=== PATIENT | male | born 1945 | race Caucasian/White ===

== ENCOUNTER → 2016-08-07 | Outpatient (CLI) | payer MEDICARE | END | disposition home or self-care (01) | LOC: CARD 11:48 | PROVIDERS: ATTEND Genetic Counselor, MS | DX: Z02.9 Encounter for administrative examinations, unspecified (principal) ==

== ENCOUNTER → 2016-09-05 | Outpatient (CLI) | payer MEDICARE | END | disposition home or self-care (01) | LOC: CARD 10:37 | PROVIDERS: ATTEND Genetic Counselor, MS | DX: I25.10 Atherosclerotic heart disease of native coronary artery without angina pectoris (principal); I49.3 Ventricular premature depolarization | CPT/HCPCS: 93017 ==

== ENCOUNTER → 2016-09-06 | Outpatient (CLI) | payer MEDICARE ==
[~2016-09-06] MED LIST: OMNIPAQUE 350 MG/ML, 100ML BOTTLE ONE
== END | disposition home or self-care (01) ==
LOC: CFH 09:29
PROVIDERS: ATTEND Genetic Counselor, MS
DX: K44.9 Diaphragmatic hernia without obstruction or gangrene (principal); M48.56XA Collapsed vertebra, not elsewhere classified, lumbar region, initial encounter for fracture; M16.0 Bilateral primary osteoarthritis of hip; M47.896 Other spondylosis, lumbar region; M47.897 Other spondylosis, lumbosacral region
CPT/HCPCS: 71260; 74177; 82565; Q9967

== ENCOUNTER → 2019-03-30 | Outpatient (CLI) | payer MEDICARE ==
[~2019-03-30] MED LIST changes: +DIPH25CA61 PO; +ESOM20CA PO; +GLUC1TAB27 PO; +LISI-167 PO; +MAGN400T36 PO; +NAPR220C2 PO; -OMNIPAQUE 350 MG/ML, 100ML BOTTLE ONE; +TURMERIC PO; +TYLENOL PM PO; +[UNRECOGNIZED DRUG - OTHER] PO
[2019-03-30 10:22] LABS: BASOPHILS % (AUTO) 1 % (0-1); EOSINOPHILS # (AUTO) 0.08 x10^3/uL (0-0.4); EOSINOPHILS % (AUTO) 1 % (1-7); LYMPHOCYTES # (AUTO) 1.68 x10^3/uL (1-3.4); LYMPHOCYTES % (AUTO) 23 % (22-44); MD NO; MEAN CORPUSCULAR HEMOGLOBIN 30.4 pg (27.5-34.5); MEAN CORPUSCULAR HGB CONC 33.6 g/dL (33.2-36.2); MEAN CORPUSCULAR VOLUME 90.3 fL (81-97); MEAN PLATELET VOLUME 8.9 fL (7.4-10.4); MONOCYTES # (AUTO) 0.75 x10^3/uL (0.2-0.8); MONOCYTES % (AUTO) 10 % (2-9); NEUTROPHILS # (AUTO) 4.76 x10^3/uL (1.8-6.8); NEUTROPHILS % (AUTO) 65 % (42-75); PLATELET COUNT 254 x10^3/uL (130-400); RED BLOOD COUNT 5.05 x10^6/uL (4.38-5.82); RED CELL DISTRIBUTION WIDTH 13.3 % (9.4-14.8)
[2019-03-30 10:32] LABS: ALANINE AMINOTRANSFERASE 18 U/L (12-78); ALBUMIN 3.7 g/dL (3.4-5.0); ANION GAP 9 mmol/L (5-15); CHLORIDE 108 mmol/L (98-107)
[2019-03-30 10:34] LABS: ALKALINE PHOSPHATASE 54 U/L (45-117); BILIRUBIN,TOTAL 0.5 mg/dL (0.2-1.0); TOTAL PROTEIN 7.7 g/dL (6.4-8.2)
== END | disposition home or self-care (01) ==
LOC: STAR 09:21
PROVIDERS: ATTEND Orthopaedic Surgery
DX: Z01.818 Encounter for other preprocedural examination (principal); M16.12 Unilateral primary osteoarthritis, left hip
CPT/HCPCS: 36415; 80053; 85025; 87081; 93005

== ENCOUNTER 2019-04-14 05:14 | Inpatient (IN) | payer MEDICARE ==
[~2019-04-14] VITALS: Ht 180.3 cm; Wt 82.7 kg
[2019-04-14] MEDS ORDERED: LACTATED RINGERS 1,000 ML IV SCH (06:16)
[2019-04-14 06:19] VITALS: BP 156/81
[2019-04-14] MEDS ORDERED: ACETAMINOPHEN 100 ML IVPB ONE (06:30)
[2019-04-14] MEDS ORDERED: morphine SULFATE/PF 1 MG/ML, 10ML ONE (06:57)
[2019-04-14] MEDS ORDERED: METHYLENE BLUE 10 MG/ML 10ML ONE (06:57)
[2019-04-14] MEDS ORDERED: KETOROLAC 60 MG/2 ML ONE (06:57)
[2019-04-14] MEDS ORDERED: TRANEXAMIC ACID 100 MG/ML, 10ML ONE (06:57)
[2019-04-14] MEDS ORDERED: ROPIvacaine/PF 0.2%, 20 ML ONE (06:58)
[2019-04-14] MEDS ORDERED: NEOSPORIN OINT. PKT 1 PACKET ONE ×2 (06:58→07:08)
[2019-04-14] MEDS ORDERED: EPINEPHRINE 1 MG/ML, 1ML ONE (06:58)
[2019-04-14] MEDS ORDERED: VANCOMYCIN 1,000 MG ONE (06:58)
[2019-04-14] MEDS ORDERED: SODIUM CHLORIDE 0.9% 50 ML ONE (06:58)
[2019-04-14] MEDS ORDERED: ACETAMINOPHEN 500 MG TABLET PO ONE (07:00)
[2019-04-14] MEDS ORDERED: FENTANYL PF 250 MCG/5ML ONE (07:25)
[2019-04-14] MEDS ORDERED: LIDOCAINE PF 2%, 5ML ONE (07:26)
[2019-04-14] MEDS ORDERED: hydrALAzine 20 MG/ML, 1ML ONE ×2 (07:26→08:05)
[2019-04-14] MEDS ORDERED: PROPOFOL 10 MG/ML, 20ML ONE (07:59)
[2019-04-14] MEDS ORDERED: CEFAZOLIN 1,000 MG ONE (07:59)
[2019-04-14] MEDS ORDERED: DEXAMETHASONE 4 MG/ML, 1ML ONE (07:59)
[2019-04-14] MEDS ORDERED: SUCCINYLCHOLINE 20 MG/ML, 10ML ONE (07:59)
[2019-04-14] MEDS ORDERED: ROCURONIUM 10MG/ML,5ML ONE (07:59)
[2019-04-14] MEDS ORDERED: ONDANSETRON 2MG/ML, 2ML ONE (07:59)
[2019-04-14] MEDS ORDERED: GLYCOPYRROLATE 0.2MG/1ML, 5ML ONE (07:59)
[2019-04-14] MEDS ORDERED: FENTANYL PF 100 MCG/2ML ONE ×2 (07:59→09:08)
[2019-04-14] MEDS ORDERED: NEOSTIGMINE 1 MG/ML, 10ML ONE (07:59)
[2019-04-14] MEDS ORDERED: ONDANSETRON 2MG/ML, 2ML IV PRN (08:30)
[2019-04-14] MEDS ORDERED: PROMETHAZINE 25 MG/ML, 1ML IV PRN (08:30)
[2019-04-14] MEDS ORDERED: ONDANSETRON ODT 8 MG PO PRN (08:30)
[2019-04-14] MEDS ORDERED: PROMETHAZINE 25 MG SUPP PR PRN (08:30)
[2019-04-14] MEDS ORDERED: HYDROmorphone 2 MG/ML, 1ML IVPush PRN (08:30)
[2019-04-14] MEDS ORDERED: OXYcodone 5 MG/5 ML ORAL.SOL UDC PO PRN ×2 (08:30→11:30)
[2019-04-14] MEDS ORDERED: FENTANYL PF 100 MCG/2ML IV PRN (08:30)
[2019-04-14] MEDS ORDERED: LABETALOL 5MG/ML, 20ML IV PRN (08:30)
[2019-04-14] MEDS ORDERED: hydrALAzine 20 MG/ML, 1ML IV PRN (08:30)
[2019-04-14] MEDS ORDERED: SUGAMMADEX 200 MG/2 ML IVPush ONE (08:34)
[2019-04-14 10:30] VITALS: BP 120/71
[2019-04-14 10:40] VITALS: BP 120/71
[2019-04-14] MEDS ORDERED: ONDANSETRON 2MG/ML, 2ML IVPush PRN (11:00)
[2019-04-14] MEDS ORDERED: POTASSIUM CHLORIDE 10 MEQ in D5%-0.45% NACL 1,000 ML IV SCH (11:00)
[2019-04-14] MEDS: ACETAMINOPHEN 500 MG TABLET PO SCH ×3 (11:00→22:43)
[2019-04-14 14:15] VITALS: BP 126/70
[2019-04-14] MEDS: KETOROLAC 30 MG/1 ML IVPush SCH (16:49)
[2019-04-14] MEDS: CEFAZOLIN PMX 1GM/50ML 50 ML IVPB SCH (16:50)
[2019-04-14 19:50] VITALS: BP 97/61
[2019-04-14 23:54] VITALS: BP 120/75
[2019-04-15] MEDS: CEFAZOLIN PMX 1GM/50ML 50 ML IVPB SCH (00:12)
[2019-04-15] MEDS: KETOROLAC 30 MG/1 ML IVPush SCH ×2 (00:12→08:53)
[2019-04-15 04:02] VITALS: BP 115/67
[2019-04-15] MEDS: ACETAMINOPHEN 500 MG TABLET PO SCH ×2 (05:01→11:16)
[2019-04-15 07:07] VITALS: BP 139/79
[2019-04-15] MEDS ORDERED: LISINOPRIL 10 MG TABLET PO SCH (09:00)
[2019-04-15] MEDS ORDERED: OXYC-307 PO (12:09)
== END 2019-04-15 13:21 | disposition home or self-care (01) | DRG 470 ==
LOC: ORIP 05:14 → 4NE 10:20 → DCLOUNGE 04-15 13:06
PROVIDERS: ADMIT Orthopaedic Surgery; ATTEND Orthopaedic Surgery
PROC: 0SRB0JA Replacement of Left Hip Joint with Synthetic Substitute, Uncemented, Open Approach (ICD-10-PCS; principal; 2019-04-14 07:30)
DX: M16.12 Unilateral primary osteoarthritis, left hip (principal); I10 Essential (primary) hypertension; K21.9 Gastro-esophageal reflux disease without esophagitis; Z82.3 Family history of stroke; Z87.891 Personal history of nicotine dependence
CPT/HCPCS: 36415; 86850; 86900; C1713; G0378; J0171; J0690; J1100; J1885; J2274; J2405; J2704; J2710; J2795; J3010; J3370; C1776; J0330; J0360; J7120; Q9968